=== PATIENT | female | born 2005 | race American Indian/Alaskan Native ===

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

== ENCOUNTER 2024-10-13 18:53 | Inpatient (IN) | payer MEDICAID ==
[2024-10-13] MEDS: Lactated Ringers 1,000 ML IV SCH ×2 (19:50→21:44)
[2024-10-13 19:55] LABS: HEMATOCRIT 31.8 % (37.0-47.0); HEMOGLOBIN 9.9 g/dL (12.0-16.0); MEAN CORPUSCULAR HEMOGLOBIN 25.1 pg (27.0-34.0); MEAN CORPUSCULAR HGB CONC 31.1 g/dL (33.0-35.0); MEAN CORPUSCULAR VOLUME 80.5 fL (80-100); RED BLOOD CELL COUNT 3.95 10^6/uL (4.2-5.4); WHITE BLOOD CELL COUNT,WBC 8.6 10^3/uL (5.0-10.0)
[2024-10-13] MEDS ORDERED: Acetaminophen/oxyCODONE 325-5 MG Tab PO PRN (20:03)
[2024-10-13] MEDS ORDERED: Acetaminophen 325 MG Tab PO PRN (20:03)
[2024-10-13] MEDS ORDERED: Carboprost Tromethamine 250 MCG/1 ML Amp IM PRN (20:03)
[2024-10-13] MEDS ORDERED: Naloxone 2 MG/2 ML Syringe IVPUSH PRN (20:03)
[2024-10-13] MEDS ORDERED: ePHEDrine 50 MG/ML SDV IVPUSH PRN (20:03)
[2024-10-13] MEDS ORDERED: diphenhydrAMINE 50 MG/ML SDV IVPUSH PRN (20:03)
[2024-10-13] MEDS ORDERED: Methylergonovine 0.2 MG/1 ML Amp IM PRN (20:03)
[2024-10-13] MEDS ORDERED: Tranexamic Acid 1,000 MG in Sodium Chloride 0.9% 100 ML IV PRN (20:03)
[2024-10-13] MEDS ORDERED: Misoprostol 100 MCG Tab RECTAL PRN (20:03)
[2024-10-13 20:11] LABS: ALANINE AMINOTRANSFERASE,ALT 21 U/L (14-59); ASPARTATE AMNIOTRANSFERASE,AST 20 U/L (15-37); BLOOD UREA NITROGEN,BUN 9 mg/dL (7-18); CREATININE 0.57 mg/dL (0.55-1.02); LACTATE DEHYDROGENASE,LDH 199 U/L (81-234); URIC ACID 4.3 mg/dL (2.6-6.0)
[2024-10-13 20:12] LABS: ESTIMATED GFR 133 mL/min (>=60)
[2024-10-13 20:16] LABS: APPEARANCE,URINE CLEAR (CLEAR); BILIRUBIN,URINE NEGATIVE (NEGATIVE); COLOR,URINE YELLOW (YELLOW); GLUCOSE,URINE NEGATIVE (NEGATIVE); KETONES,URINE TRACE (NEGATIVE); LEUKOCYTE ESTERASE,URINE NEGATIVE (NEGATIVE); NITRITE,URINE NEGATIVE (NEGATIVE); OCCULT BLOOD,URINE NEGATIVE (NEGATIVE); PROTEIN,URINE NEGATIVE (NEGATIVE); UROBILINOGEN,URINE 0.2 mg/dL (0.2-1.0)
[2024-10-13 20:31] LABS: CREATININE,URINE RAND 130.28 mg/dL (No establ ref range); PROTEIN CREATININE RATIO,URINE 173.5 mg/g (<150.0); PROTEIN,URINE RANDOM 22.6 mg/dL (0.0-11.9)
[2024-10-13] MEDS: Oxytocin/Normal Saline 30 UNIT/500 ML BAG IV SCH (21:28)
[2024-10-13] MEDS: Simethicone 80 MG Tab.Chew PO SCH (22:18)
[2024-10-13] MEDS: Promethazine 25 MG/ML SDV IM ONE (22:19)
[2024-10-13] MEDS: Famotidine 20 MG/2 ML SDV IVPUSH ONE (22:20)
[2024-10-14] MEDS: ceFAZolin 2 GM Vial IVPUSH ONE (01:38)
[2024-10-14] MEDS: Ketorolac 30 MG/ML SDV IVPUSH SCH (03:44)
[2024-10-14] MEDS: Ondansetron 4 MG/2 ML SDV IVPUSH PRN (05:16)
[2024-10-14 06:16] LABS: HEMATOCRIT 29.2 % (37.0-47.0); HEMOGLOBIN 8.9 g/dL (12.0-16.0); MEAN CORPUSCULAR HEMOGLOBIN 25.1 pg (27.0-34.0); MEAN CORPUSCULAR HGB CONC 30.5 g/dL (33.0-35.0); MEAN CORPUSCULAR VOLUME 82.3 fL (80-100); RED BLOOD CELL COUNT 3.55 10^6/uL (4.2-5.4); WHITE BLOOD CELL COUNT,WBC 14.2 10^3/uL (5.0-10.0)
[2024-10-14] MEDS: Ferrous Sulfate 325 MG Tab PO SCH (08:09)
[2024-10-14] MEDS: Docusate Sodium 100 MG Cap PO PRN (08:09)
[2024-10-14] MEDS: Prenatal Multivitamin with Calcium/Folic Acid/Iron Tab PO SCH (08:09)
[2024-10-14] MEDS: Acetaminophen/oxyCODONE 325-5 MG Tab PO PRN (20:59)
[2024-10-14] MEDS ORDERED: Ibuprofen 800 MG Tab PO PRN (23:15)
[2024-10-14] MEDS: Ibuprofen 800 MG Tab PO SCH (23:30)
[2024-10-15] MEDS ORDERED: Tranexamic Acid 1,000 MG/10 ML Vial IV ONE (08:29)
[2024-10-15] MEDS: Measles, Mumps & Rubella Vaccine 0.5 ML SDV SUBCUT ONE (08:39)
[2024-10-15] MEDS ORDERED: Ropivacaine 100 ML EPIDUR ONE (20:35)
[2024-10-15] MEDS ORDERED: Dexamethasone 4 MG/ML SDV IV ONE (20:35)
[2024-10-15] MEDS ORDERED: Ondansetron 4 MG/2 ML SDV IV ONE (20:35)
[2024-10-15] MEDS ORDERED: Oxytocin/Normal Saline 30 UNIT/500 ML BAG IV ONE (20:35)
[2024-10-15] MEDS ORDERED: Lactated Ringers 1,000 ML IV ONE (20:35)
[2024-10-15] MEDS ORDERED: Ketorolac 30 MG/ML SDV IVPUSH ONE (20:35)
[2024-10-15] MEDS ORDERED: Morphine PF 10 MG/10 ML SDV EPIDUR ONE (20:35)
[2024-10-15] MEDS ORDERED: Phenylephrine 1% 10 MG/ML SDV IV ONE (20:35)
== END 2024-10-15 08:30 | disposition home or self-care (01) | DRG 787 ==
LOC: DL.OBCHECK 18:53 → DL.OB 19:40 → OBSVTOIN 20:57
PROVIDERS: ADMIT Family Medicine; ATTEND Family Medicine
PROC: 10D00Z1 Extraction of Products of Conception, Low, Open Approach (ICD-10-PCS; principal; 2024-10-13 20:00)
DX: O34.211 Maternal care for low transverse scar from previous cesarean delivery (principal); D62 Acute posthemorrhagic anemia; O24.420 Gestational diabetes mellitus in childbirth, diet controlled; O99.344 Other mental disorders complicating childbirth; F32.A Depression, unspecified; O28.0 Abnormal hematological finding on antenatal screening of mother; R79.89 Other specified abnormal findings of blood chemistry; O14.94 Unspecified pre-eclampsia, complicating childbirth; O99.02 Anemia complicating childbirth; Z37.0 Single live birth; Z3A.38 38 weeks gestation of pregnancy
CPT/HCPCS: 36415; 81003; 82565; 82570; 82947; 83615; 84156; 84450; 84460; 84520; 84550; 85027; 86850; 86900; 86901; 90471; 90707; A9270-GY; J0690; J1100; J1885; J2274; J2371; J2405; J2550; J2590; J2795; J3490; J7120